=== PATIENT | male | born 1945 | race Caucasian/White ===

== ENCOUNTER 2017-09-19 22:45 | Observation (INO) | payer MEDICARE, OTHER ==
[2017-09-19] MEDS ORDERED: Sodium Chloride 0.9% 5 ML Syringe FLUSH PRN (23:19)
--- NOTE | 2017-09-19 23:24 | EDM.PDOC ---
ED HPI GENERAL MEDICAL PROBLEM - General Chief Complaint: Cardiovascular Problem Stated Complaint: chest pain Time Seen by Provider: 09/19/17 23:17 Source of Information: Reports: Patient History Limitations: Reports: No Limitations - History of Present Illness INITIAL COMMENTS - FREE TEXT/NARRATIVE: Patient is 72-year-old gentleman who presents emergency Department this evening with a complaint of chest pain that began at 10 p.m. this evening. Patient states that while at rest, he had 4 sharp pains to the left chest, each lasting a few seconds. His granddaughter said that he became clammy and decided to bring him to the emergency department. Chest pain resolved prior to presentation. Patient underwent cardiac stents in 1999 and 2009. Patient is scheduled to see motor boss at [facility] for checkup tomorrow. Patient denies fever, headache, vision changes, nausea, vomiting, diarrhea, fall or syncopal episode. Patient presents with and granddaughter. Onset: Today Onset Date: 09/19/17 Onset Time: 22:00 Duration: Minutes: Location: Reports: Chest Quality: Reports: Sharp Severity: Mild Improves with: Reports: Other (Spontaneously) Worsens with: Reports: None Context: Reports: Other (While at rest) Associated Symptoms: Reports: Chest Pain, Diaphoresis - Related Data Allergies Allergy/AdvReac Type Severity Reaction Status Date / Time No Known Allergies Allergy Verified 09/19/17 23:13 Home Meds: Home Meds Aspirin [Adult Low Dose Aspirin EC] 162 mg PO DAILY 09/06/13 [History] Carvedilol [Coreg] 12.5 mg PO BID 09/06/13 [History] Folic Acid 2 mg PO DAILY 09/06/13 [History] Losartan [Cozaar] 25 mg PO DAILY 09/06/13 [History] Rosuvastatin [Crestor] 20 mg PO DAILY 09/06/13 [History] Carvedilol [Carvedilol] 6.25 mg PO DAILY 09/19/17 [History] Levothyroxine Sodium [Synthroid] 75 mcg PO DAILY 09/19/17 [History] Warfarin Sodium [Warfarin Sodium] 5 mg PO DAILY 09/19/17 [History] Social & Family History - Alcohol Use Days Per Week of Alcohol Use: 0 - Recreational Drug Use Recreational Drug Use: No ED ROS GENERAL - Review of Systems Review Of Systems: ROS reveals no pertinent complaints other than HPI. Constitutional: Reports: Diaphoresis HEENT: Reports: No Symptoms Respiratory: Reports: No Symptoms Cardiovascular: Reports: Chest Pain Endocrine: Reports: No Symptoms GI/Abdominal: Reports: No Symptoms : Reports: No Symptoms Musculoskeletal: Reports: No Symptoms Skin: Reports: No Symptoms Neurological: Reports: No Symptoms Psychiatric: Reports: No Symptoms Hematologic/Lymphatic: Reports: No Symptoms Immunologic: Reports: No Symptoms ED EXAM, GENERAL - Physical Exam Exam: See Below Exam Limited By: No Limitations General Appearance: Alert, WD/WN, No Apparent Distress Nose: Normal Inspection, Normal Mucosa, No Blood Throat/Mouth: Normal Inspection, Normal Oropharynx, No Airway Compromise Head: Atraumatic, Normocephalic Neck: Normal Inspection Respiratory/Chest: No Respiratory Distress, Lungs Clear, Normal Breath Sounds, No Accessory Muscle Use Cardiovascular: Regular Rate, Rhythm, No Murmur GI/Abdominal: Normal Bowel Sounds, Soft, Non-Tender Back Exam: Normal Inspection Extremities: Normal Inspection, No Pedal Edema Neurological: Alert, Oriented, CN II-XII Intact, Normal Cognition Psychiatric: Normal Affect, Normal Mood Skin Exam: Warm, Dry, Intact, Normal Color, No Rash EKG INTERPRETATION EKG Date: 09/19/17 Time: 22:55 Rhythm: Other (Sinus rhythm with frequent PVCs) Comparison: NA - No Prior EKG Course - Orders/Labs/Meds Orders: Active Orders 24 hr Category Date Time Status EKG Documentation Completion [RC] ASDIRECTED Care 09/19/17 23:14 Active Peripheral IV Care [RC] . DIRECTED Care 09/19/17 23:19 Ordered Chest 1V Frontal [CR] Stat Exams 09/19/17 23:13 Ordered B-TYPE NATRIURETIC PEPTIDE,BNP [CHEM] Stat Lab 09/19/17 23:18 Ordered CBC WITH AUTO DIFF [HEME] Stat Lab 09/19/17 23:13 Ordered COMPREHENSIVE METABOLIC PN,CMP [CHEM] Stat Lab 09/19/17 23:14 Ordered INR,PT,PROTHROMBIN TIME [COAG] Stat Lab 09/19/17 23:18 Ordered MAGNESIUM [CHEM] Stat Lab 09/19/17 23:18 Ordered PTT,PARTIAL THROMBOPLSTIN TIME [COAG] Stat Lab 09/19/17 23:18 Ordered TROPONIN I [CHEM] Stat Lab 09/19/17 23:14 Ordered Sodium Chloride 0.9% [Syrex Flush] Med 09/19/17 23:19 Ordered 5 ml FLUSH Q8HR PRN Peripheral IV Insertion Adult [OM.PC] Routine Oth 09/19/17 23:19 Ordered EKG 12 Lead [EK] Routine Ther 09/19/17 23:14 Ordered - Radiology Interpretation Free Text/Narrative:: Chest x-ray shows no acute process. - Re-Assessments/Exams Free Text/Narrative Re-Assessment/Exam: 09/20/17 00:16 Patient afebrile, nontoxic appearing. Vital signs stable. No chest pain while in the ER. Discussed case with Gideon Vidal, patient will be admitted for observation and followed Departure - Departure Time of Disposition: 00:16 Disposition: Refer to Observation Condition: Fair Clinical Impression: Chest pain Qualifiers: Chest pain type: unspecified Qualified Code(s): R07.9 - Chest pain, unspecified - My Orders Last 24 Hours: My Active Orders 09/19/17 23:13 Chest 1V Frontal [CR] Stat CBC WITH AUTO DIFF [HEME] Stat 09/19/17 23:14 EKG Documentation Completion [RC] ASDIRECTED COMPREHENSIVE METABOLIC PN,CMP [CHEM] Stat TROPONIN I [CHEM] Stat EKG 12 Lead [EK] Routine 09/19/17 23:18 B-TYPE NATRIURETIC PEPTIDE,BNP [CHEM] Stat INR,PT,PROTHROMBIN TIME [COAG] Stat MAGNESIUM [CHEM] Stat PTT,PARTIAL THROMBOPLSTIN TIME [COAG] Stat 09/19/17 23:19 Peripheral IV Care [RC] . DIRECTED Sodium Chloride 0.9% [Syrex Flush] 5 ml FLUSH Q8HR PRN Peripheral IV Insertion Adult [OM.PC] Routine - Assessment/Plan Last 24 Hours: My Active Orders 09/19/17 23:13 Chest 1V Frontal [CR] Stat CBC WITH AUTO DIFF [HEME] Stat 09/19/17 23:14 EKG Documentation Completion [RC] ASDIRECTED COMPREHENSIVE METABOLIC PN,CMP [CHEM] Stat TROPONIN I [CHEM] Stat EKG 12 Lead [EK] Routine 09/19/17 23:18 B-TYPE NATRIURETIC PEPTIDE,BNP [CHEM] Stat INR,PT,PROTHROMBIN TIME [COAG] Stat MAGNESIUM [CHEM] Stat PTT,PARTIAL THROMBOPLSTIN TIME [COAG] Stat 09/19/17 23:19 Peripheral IV Care [RC] . DIRECTED Sodium Chloride 0.9% [Syrex Flush] 5 ml FLUSH Q8HR PRN Peripheral IV Insertion Adult [OM.PC] Routine Assessment:: Chest pain Plan: Admit to observation for [facility]
[2017-09-20 00:05] LABS: CHLORIDE,CL 105 mmol/L (98-115); SODIUM,NA 139 mmol/L (136-145)
[2017-09-20 06:48] VITALS: BP 129/66
--- NOTE | 2017-09-20 13:03 | HP ---
HISTORY OF PRESENT ILLNESS: This is a 72-year-old gentleman who was sitting home with his granddaughter when he started having some pain to the left side of the chest. He describes the pain as just a squeezing tight feeling. He says it only lasted for about 3-4 seconds and went away. He was sitting there at rest again and he started having another episode where it lasted a couple seconds, he ended up having four episodes of this sharp squeezing pain to the left side of his chest. His granddaughter thought that he looked sweaty and diaphoretic and clammy, so she decided to bring the gentleman to the emergency room for further evaluation and treatment. The patient's chest pain was resolved by the time he had presented to the emergency room. He denied any shortness of breath, sweatiness, or nausea with the chest pain. The patient does have a cardiac history of having stents placed in 1999 and 2009. He was seen by Dr. Courtney, surgical instrument technician in [place]. PAST MEDICAL HISTORY: Hypothyroidism, hypertension, hyperlipidemia, coronary artery disease, and history of CVA on Coumadin. MEDICATIONS: Medications that he is taking at home, levothyroxine 75 mcg daily, Coumadin 5 mg daily, carvedilol 6.25 mg daily, Crestor 10 mg daily, losartan 25 mg daily, folic acid 2 mg daily, carvedilol 12.5 mg at bedtime, and aspirin 81 mg daily. ALLERGIES: He has no known drug allergies. SOCIAL PERSONAL HISTORY: The patient is retired, lives in [place], [place]. Denies any alcohol or tobacco use. REVIEW OF SYSTEMS: CONSTITUTIONAL: No weight loss. No fever. No chills. No night sweats. Appetite is good. No fatigue. EYES: No recent visual changes. ENT: No sinus congestion or hoarseness. CARDIOVASCULAR: No chest pain or palpitations. RESPIRATORY: No cough. No shortness of breath. GI: No vomiting, diarrhea or melena. : No dysuria or hematuria. MUSCULOSKELETAL: No new bone pain or joint swelling. INTEGUMENTARY: No rash or pruritus. NEUROLOGIC/PSYCHIATRIC: No recent headache or focal weakness. No depressive symptoms. ENDOCRINE: No heat or cold intolerances or polydipsia. HEMATOLOGIC/LYMPHATIC: No excessive bruising or lymph node swelling. ALLERGIC/IMMUNOLOGIC: No hives or recurrent infections. The patient has no complaints at the time of admission. PHYSICAL EXAMINATION: GENERAL: This is an elderly white male in no acute distress. VITAL SIGNS: Blood pressure is 120/68, pulse is 51, temperature is 98.1, weight is 190 pounds, respiratory rate is 18, oxygen saturations are 98% on room air. HEENT: Head is normocephalic. EOMs are intact. Pupils are equal, round to light and accommodation. Bilateral tympanic membranes are intact. Nose is clear. No pharyngeal erythema. NECK: Supple. No JVD. Trachea midline. LUNGS: Clear to auscultation. CARDIAC: Regular rate and rhythm. No murmurs identified. ABDOMEN: Soft, nontender, nondistended. Bowel sounds present x4. EXTREMITIES: No joint effusions noted. Full range of motion. NEUROLOGIC: Grossly intact. DIAGNOSTIC DATA: Chest x-ray shows no acute processes per Radiology. EKG that was performed in the emergency room showed sinus rhythm with frequent PVCs at 62 beats per minute. Lab work that was obtained in the emergency room, CBC was unremarkable. PT was 20.6, INR was 2.1, PTT was 31.4. Chemistry panel was unremarkable except for BUN was slightly elevated at 29, creatinine at 1.19, GFR was still greater than 60. Calcium was slightly low at 8.5. Brain-natriuretic peptide was slightly elevated at 103. Troponin was negative at 0.04. The patient's repeat troponin that was done at 4 in the morning was also negative at 0.04. IMPRESSION/PLAN: 1. Left-sided chest pressure with cardiac history. The patient has been on telemetry since admission last evening. The patient's troponin this morning is also negative. He has had no further chest pain since been admitted. No shortness of breath. The patient is doing well. We will most likely discharge the patient here this morning. The patient does have a cardiology appointment in [place] that he needs to get to. We will continue the patient on baby aspirin 81 mg daily. 2. History of hypothyroidism. Plan: We will continue the patient on levothyroxine 75 mcg daily. 3. History of CVA. Plan: Continue the patient on Coumadin 5 mg daily. INR was 2.1. 4. History of hypertension. Plan: Continue the patient on carvedilol 6.25 mg in the morning and 12.5 mg at bedtime. Also, losartan 25 mg daily. 5. Hyperlipidemia. Continue the patient on Crestor 10 mg daily. /[id number]/MODL
--- NOTE | 2017-09-21 08:19 | DISCH ---
ADMITTING DIAGNOSIS: Left-sided chest pain. DISCHARGE DIAGNOSIS: Left-sided chest pain, resolved. BRIEF HISTORY AND ESSENTIAL PHYSICAL FINDINGS: This is a 72-year-old gentleman who was sitting home about 10:00 p.m. in the evening, when he started having some episodes of chest pain in his left chest area. He describes it as a tightness or squeezing sensation. He says it lasted for about 3 or 4 seconds and dissipated. He says he had 4 separate episodes where this happen. His granddaughter with him states that he looked a little sweaty or clammy, so at that time, they decided to bring the patient to the emergency room for further evaluation and treatment. The patient does have a cardiac history where he had stents placed back in 1999 and 2009. He denied any chest pain on arrival to the emergency room. He denied any nausea, sweatiness, or shortness of breath with the chest pain. SIGNIFICANT LABS XRAYS AND CONSULTATION FINDINGS: The patient's chest x-ray obtained in the emergency room showed no acute process per Radiology. The patient's EKG showed sinus rhythm with frequent PVCs at 62 beats per minute. Lab work that was obtained in the emergency room, CBC was unremarkable. PT was 20.6, INR was 2.1, PTT was 31.4. Chemistry panel showed BUN elevated at 29, creatinine 1.19, GFR was greater than 60. Calcium was slightly low at 8.5. The patient's brain natriuretic peptide was very slightly elevated at 103. The patient's troponin in the emergency room was 0.04. The rest of the patient's chemistry panel was unremarkable. Repeat troponin that was obtained at 4 in the morning was negative at 0.04. COURSE IN HOSPITAL WITH COMPLICATIONS IF ANY: The patient never had any chest pain either in the emergency room or throughout the night. He denies any nausea, sweatiness, or shortness of breath. The patient was feeling fine. He had no other issues. CONDITION TREATMENT AND FINAL DISPOSITION ON DISCHARGE AND PROGNOSIS: Condition stable. Final disposition, the patient will be discharged home. IMPRESSION AND PLAN: 1. Left-sided chest pain with cardiac history. Plan, the patient will be discharged this morning. He does have Cardiology appointment in [place] at 12:30, they need to get to. We are going to discharge him home on his beta- blockers of carvedilol. He is also on an RONALD inhibitor of losartan 25 mg daily. He takes baby aspirin 81 mg daily. 2. History of hypothyroidism. Plan, continue the patient at home on levothyroxine 75 mcg daily. 3. History of cerebrovascular accident. Plan, continue the patient on Coumadin 5 mg daily. His INR was 2.1. 4. History of hyperlipidemia. Plan, continue the patient on Crestor 10 mg daily. OVERALL PLAN: The patient will be discharged here within the next hour or so, he can get on the road. He has a Cardiology appointment today in [place] at 12:30. /[id number]/MODL
== END 2017-09-20 09:10 | disposition home or self-care (01) ==
LOC: KA.ED 22:45 → KA.MS 09-20 00:15 → UNDOADMOB 09-20 00:15
PROVIDERS: ADMIT Physician Assistant; ATTEND Physician Assistant
DX: R07.9 Chest pain, unspecified (principal); E03.9 Hypothyroidism, unspecified; E78.5 Hyperlipidemia, unspecified; I63.9 Cerebral infarction, unspecified; I25.10 Atherosclerotic heart disease of native coronary artery without angina pectoris; Z79.01 Long term (current) use of anticoagulants; Z79.82 Long term (current) use of aspirin; Z79.899 Other long term (current) drug therapy
CPT/HCPCS: 36415; 71010; 80053; 83735; 83880; 84484; 85025; 85610; 85730; 93005; 99285; G0378; 99284

== ENCOUNTER 2021-12-29 11:27 | Emergency (ER) | payer MEDICARE, OTHER ==
[2021-12-29] MEDS ORDERED: Sodium Chloride 0.9% 10 ML Syringe FLUSH PRN (11:33)
[2021-12-29 12:07] LABS: ANION GAP 13.6 mmol/L (5-15); CHLORIDE,CL 107 mmol/L (98-107); SODIUM,NA 142 mmol/L (136-145)
[2021-12-29 15:09] VITALS: BP 134/62; PULSE 63
== END 2021-12-29 16:00 | disposition home or self-care (01) ==
LOC: KA.ED 11:27
DX: R07.89 Other chest pain (principal); I95.9 Hypotension, unspecified; E78.00 Pure hypercholesterolemia, unspecified; I10 Essential (primary) hypertension; I25.2 Old myocardial infarction; E03.9 Hypothyroidism, unspecified; Z86.73 Personal history of transient ischemic attack (TIA), and cerebral infarction without residual deficits; Z79.82 Long term (current) use of aspirin; Z79.899 Other long term (current) drug therapy; Z20.822 Contact with and (suspected) exposure to COVID-19
CPT/HCPCS: 36415; 71046; 80053; 84484; 85025; 93010; 99284; 99285-25; U0002

== ENCOUNTER 2021-12-30 18:16 | Observation (INO) | payer MEDICARE, OTHER ==
[2021-12-30] MEDS ORDERED: Ondansetron 4 MG/2 ML SDV IVPUSH ONE (18:28)
[2021-12-30] MEDS ORDERED: Sodium Chloride 0.9% 10 ML Syringe FLUSH PRN (18:28)
[2021-12-30] MEDS ORDERED: Sodium Chloride 0.9% 1,000 ML IV ONE (18:40)
[2021-12-30] MEDS ORDERED: Famotidine 20 MG/2 ML SDV IVPUSH ONE (18:54)
[2021-12-30] MEDS ORDERED: Simethicone 80 MG Tab.Chew PO ONE (18:54)
[2021-12-30] MEDS ORDERED: Iopamidol 755 Mg/ML 75 ML Bottle IVPUSH ONE (19:00)
[2021-12-30] MEDS ORDERED: Sodium Chloride 0.9% 1,000 ML ONE (20:09)
[2021-12-30] MEDS: Sodium Chloride 0.9% 1,000 ML IV SCH (20:30)
[2021-12-30] MEDS ORDERED: Ondansetron 4 MG/2 ML SDV IV PRN (21:09)
[2021-12-30] MEDS ORDERED: Morphine 2 MG/ML SYRINGE IVPUSH PRN (21:09)
[2021-12-31] MEDS: Sodium Chloride 0.9% 1,000 ML IV SCH (02:50)
[2021-12-31 08:07] LABS: ANION GAP 10.1 mmol/L (5-15); CHLORIDE,CL 107 mmol/L (98-107); SODIUM,NA 139 mmol/L (136-145)
[2021-12-31] MEDS ORDERED: Sodium Chloride 0.9% 1,000 ML IV SCH (09:00)
[2021-12-31] MEDS: Carvedilol 6.25 MG Tab PO SCH ×2 (10:12→21:37)
[2021-12-31] MEDS: Pantoprazole 40 MG Vial IVPUSH SCH ×2 (10:12→21:37)
[2021-12-31] MEDS: Rosuvastatin 10 MG Tab PO SCH (10:13)
[2021-12-31] MEDS: Losartan 25 MG Tab PO SCH (10:13)
[2021-12-31] MEDS ORDERED: Levothyroxine 88 MCG Tab PO SCH (21:00)
[2021-12-31] MEDS: Sodium Chloride 0.9% 10 ML Syringe FLUSH PRN (21:47)
[2022-01-01 07:51] LABS: ANION GAP 11.7 mmol/L (5-15); CHLORIDE,CL 106 mmol/L (98-107); SODIUM,NA 138 mmol/L (136-145)
[2022-01-01] MEDS: Pantoprazole 40 MG Vial IVPUSH SCH (09:35)
[2022-01-01] MEDS: Sodium Chloride 0.9% 10 ML Syringe FLUSH PRN (09:35)
[2022-01-01] MEDS: Losartan 25 MG Tab PO SCH (09:35)
[2022-01-01] MEDS: Carvedilol 6.25 MG Tab PO SCH (09:36)
[2022-01-01] MEDS: Rosuvastatin 10 MG Tab PO SCH (09:36)
[2022-01-01] MEDS ORDERED: Pantoprazole 40 MG Tab.CR PO ONE (11:08)
[2022-01-01 15:20] VITALS: BP 134/71; PULSE 67
== END 2022-01-01 14:45 | disposition home or self-care (01) ==
LOC: KA.ED 18:16 → KA.MS 20:14 → UNDOADMOB 20:30 → UNDODISOB 01-01 14:45
PROVIDERS: ADMIT Physician Assistant Medical; ATTEND Nurse Practitioner Family
DX: K56.7 Ileus, unspecified (principal); A08.4 Viral intestinal infection, unspecified; H54.7 Unspecified visual loss; E78.00 Pure hypercholesterolemia, unspecified; I25.2 Old myocardial infarction; I13.0 Hypertensive heart and chronic kidney disease with heart failure and stage 1 through stage 4 chronic kidney disease, or unspecified chronic kidney disease; M10.9 Gout, unspecified; N18.2 Chronic kidney disease, stage 2 (mild); E03.9 Hypothyroidism, unspecified; R79.1 Abnormal coagulation profile; Z20.822 Contact with and (suspected) exposure to COVID-19; K92.2 Gastrointestinal hemorrhage, unspecified; K21.9 Gastro-esophageal reflux disease without esophagitis; I50.22 Chronic systolic (congestive) heart failure; I25.10 Atherosclerotic heart disease of native coronary artery without angina pectoris; I25.5 Ischemic cardiomyopathy; Z95.1 Presence of aortocoronary bypass graft; E66.9 Obesity, unspecified; Z68.30 Body mass index [BMI] 30.0-30.9, adult; Z95.5 Presence of coronary angioplasty implant and graft; Z79.82 Long term (current) use of aspirin; Z79.01 Long term (current) use of anticoagulants; Z98.890 Other specified postprocedural states; Z86.73 Personal history of transient ischemic attack (TIA), and cerebral infarction without residual deficits
CPT/HCPCS: 36415; 74018; 74177; 80048; 80053; 81001; 82270; 83690; 83735; 85025; 85610; 96374; 96375; 96376; 99284; 99285-25; A9270-GY; C9113; G0378; J2405; J3490; J7030; Q9967; U0002

== ENCOUNTER 2022-01-02 10:47 | Day surgery (SDC) | payer MEDICARE, OTHER ==
[2022-01-02] MEDS ORDERED: Sodium Chloride 0.9% 10 ML Syringe FLUSH PRN (11:00)
[2022-01-02] MEDS ORDERED: Lactated Ringers 1,000 ML IV SCH (11:00)
[2022-01-02] MEDS ORDERED: Midazolam 1 MG/ML 2 ML SDV ONE (11:12)
[2022-01-02] MEDS ORDERED: Propofol 200 MG/20 ML SDV ONE (11:12)
[2022-01-02] MEDS ORDERED: Glycopyrrolate 0.2 MG/ML SDV ONE (11:59)
[2022-01-02] MEDS ORDERED: Lidocaine 2% 100 MG/5 ML Syringe ONE (11:59)
[2022-01-02 14:08] VITALS: BP 164/73; PULSE 63
== END 2022-01-02 14:20 | disposition home or self-care (01) ==
LOC: KA.SDS 10:47
PROVIDERS: ATTEND Family Medicine
DX: K25.9 Gastric ulcer, unspecified as acute or chronic, without hemorrhage or perforation (principal); K44.9 Diaphragmatic hernia without obstruction or gangrene; K56.7 Ileus, unspecified; A08.4 Viral intestinal infection, unspecified; R79.1 Abnormal coagulation profile; I25.10 Atherosclerotic heart disease of native coronary artery without angina pectoris; I13.0 Hypertensive heart and chronic kidney disease with heart failure and stage 1 through stage 4 chronic kidney disease, or unspecified chronic kidney disease; N18.2 Chronic kidney disease, stage 2 (mild); I50.22 Chronic systolic (congestive) heart failure; E78.5 Hyperlipidemia, unspecified; E03.9 Hypothyroidism, unspecified; E66.9 Obesity, unspecified; K21.9 Gastro-esophageal reflux disease without esophagitis; Z95.1 Presence of aortocoronary bypass graft; Z68.30 Body mass index [BMI] 30.0-30.9, adult; Z79.890 Hormone replacement therapy; Z79.01 Long term (current) use of anticoagulants; Z79.899 Other long term (current) drug therapy; Z86.73 Personal history of transient ischemic attack (TIA), and cerebral infarction without residual deficits
CPT/HCPCS: 00731; 36415; 85014; 85018; 85610; J2250; J2704; J3490; J7120

== ENCOUNTER 2022-04-17 06:59 | Day surgery (SDC) | payer MEDICARE, OTHER ==
[2022-04-17] MEDS ORDERED: Sodium Chloride 0.9% 10 ML Syringe FLUSH PRN (07:00)
[2022-04-17] MEDS: Lactated Ringers 1,000 ML IV SCH (07:22)
[2022-04-17] MEDS ORDERED: Midazolam 1 MG/ML 2 ML SDV ONE (07:58)
[2022-04-17] MEDS ORDERED: Propofol 200 MG/20 ML SDV ONE (07:58)
[2022-04-17] MEDS ORDERED: Lidocaine 2% 5 ML SDV ONE (07:59)
[2022-04-17] MEDS ORDERED: Glycopyrrolate 0.2 MG/ML SDV ONE (07:59)
[2022-04-17 09:19] VITALS: BP 119/60; PULSE 59
== END 2022-04-17 09:25 | disposition home or self-care (01) ==
LOC: KA.SDS 06:59
PROVIDERS: ATTEND Family Medicine
DX: K31.7 Polyp of stomach and duodenum (principal); K44.9 Diaphragmatic hernia without obstruction or gangrene; K31.89 Other diseases of stomach and duodenum; I13.0 Hypertensive heart and chronic kidney disease with heart failure and stage 1 through stage 4 chronic kidney disease, or unspecified chronic kidney disease; I50.22 Chronic systolic (congestive) heart failure; N18.2 Chronic kidney disease, stage 2 (mild); C44.41 Basal cell carcinoma of skin of scalp and neck; N13.30 Unspecified hydronephrosis; I25.10 Atherosclerotic heart disease of native coronary artery without angina pectoris; I25.5 Ischemic cardiomyopathy; E78.2 Mixed hyperlipidemia; E03.9 Hypothyroidism, unspecified; E66.3 Overweight; M43.16 Spondylolisthesis, lumbar region; K81.1 Chronic cholecystitis; Z79.01 Long term (current) use of anticoagulants; Z87.19 Personal history of other diseases of the digestive system; Z98.1 Arthrodesis status; Z86.73 Personal history of transient ischemic attack (TIA), and cerebral infarction without residual deficits; Z79.899 Other long term (current) drug therapy; Z79.890 Hormone replacement therapy; Z68.30 Body mass index [BMI] 30.0-30.9, adult; Z98.890 Other specified postprocedural states
CPT/HCPCS: 00731; 36415; 85610; J2250; J2704; J3490; J7120

== ENCOUNTER 2023-04-17 07:03 | Day surgery (SDC) | payer MEDICARE, OTHER ==
[~2023-04-17 07:03] MED LIST: Sodium Chloride 0.9% 10 ML Syringe FLUSH PRN
[2023-04-17 07:26] LABS: INR 1.2 (0.9-1.1)
[2023-04-17] MEDS: Lactated Ringers 1,000 ML IV SCH (07:33)
[2023-04-17] MEDS ORDERED: Glycopyrrolate 0.2 MG/ML SDV ONE (07:53)
[2023-04-17] MEDS ORDERED: Lidocaine 2% 5 ML SDV ONE (07:53)
[2023-04-17] MEDS ORDERED: Midazolam 1 MG/ML 2 ML SDV ONE (07:53)
[2023-04-17] MEDS ORDERED: Propofol 200 MG/20 ML SDV ONE (07:53)
[2023-04-17] MEDS ORDERED: Lactated Ringers 1,000 ML ONE (08:42)
[2023-04-17 09:33] VITALS: PULSE 64
[2023-04-17 09:34] VITALS: BP 154/89
== END 2023-04-17 10:55 | disposition home or self-care (01) ==
LOC: KA.SDS 07:03
PROVIDERS: ATTEND Family Medicine
DX: Z12.11 Encounter for screening for malignant neoplasm of colon (principal); K29.50 Unspecified chronic gastritis without bleeding; D12.6 Benign neoplasm of colon, unspecified; K31.7 Polyp of stomach and duodenum; K44.9 Diaphragmatic hernia without obstruction or gangrene; K57.30 Diverticulosis of large intestine without perforation or abscess without bleeding; K29.70 Gastritis, unspecified, without bleeding; K64.8 Other hemorrhoids; K21.9 Gastro-esophageal reflux disease without esophagitis; I25.10 Atherosclerotic heart disease of native coronary artery without angina pectoris; I25.5 Ischemic cardiomyopathy; R01.1 Cardiac murmur, unspecified; I13.0 Hypertensive heart and chronic kidney disease with heart failure and stage 1 through stage 4 chronic kidney disease, or unspecified chronic kidney disease; N18.2 Chronic kidney disease, stage 2 (mild); I50.22 Chronic systolic (congestive) heart failure; E03.4 Atrophy of thyroid (acquired); C61 Malignant neoplasm of prostate; E66.9 Obesity, unspecified; Z80.0 Family history of malignant neoplasm of digestive organs; Z87.19 Personal history of other diseases of the digestive system; Z86.73 Personal history of transient ischemic attack (TIA), and cerebral infarction without residual deficits; Z79.890 Hormone replacement therapy; Z79.899 Other long term (current) drug therapy; Z79.01 Long term (current) use of anticoagulants; Z68.31 Body mass index [BMI] 31.0-31.9, adult
CPT/HCPCS: 85610; J2250; J2704; J3490; J7120